=== PATIENT | female | born 1975 | race Caucasian/White ===

== ENCOUNTER 2016-12-19 23:53 | Emergency (ER) | payer OTHER ==
[2016-12-20 01:11] LABS: BUN/CREATININE RATIO 45 (0-10); HEMOGLOBIN 13.7 gm/dl (12.3-15.3); RED BLOOD COUNT 6.08 M/UL (4.00-5.10); WHITE BLOOD COUNT 9.1 K/UL (4.5-11.0)
[2017-03-01] MEDS ORDERED: TRICOR 145 MG145 MG PO (01:29)
[2017-03-01] MEDS ORDERED: SYNTHROID150 MCG PO (01:32)
[2017-03-01] MEDS ORDERED: SINGULAIR10 MG PO (01:32)
[2017-03-01] MEDS ORDERED: IRON325 M1 PO (01:35)
[2017-03-01] MEDS ORDERED: PROVENTIL HFA 61 INH INH ×2 (01:36)
[2017-03-01] MEDS ORDERED: FLOVENT 110.088 GM/I INH (01:38)
[2017-03-01] MEDS ORDERED: MEKINIST0.5 MG PO (01:39)
[2017-03-04] MEDS ORDERED: LEVAQUIN750 MG PO (18:57)
== END 2016-12-20 08:45 ==
LOC: ER1 23:53
PROVIDERS: Family Medicine
DX: R50.9 Fever, unspecified (principal); R22.42 Localized swelling, mass and lump, left lower limb; R11.10 Vomiting, unspecified; Z91.041 Radiographic dye allergy status; Z88.8 Allergy status to other drugs, medicaments and biological substances; Z79.899 Other long term (current) drug therapy
CPT/HCPCS: 36415; 71010; 80053; 81001; 82150; 83690; 85025; 96361; 96374; 96376; 99285; J2270; J2405

== ENCOUNTER 2017-01-02 21:44 | Emergency (ER) | payer OTHER ==
[2017-01-02 23:09] LABS: RED BLOOD COUNT 5.37 M/UL (4.00-5.10); WHITE BLOOD COUNT 9.3 K/UL (4.5-11.0)
[2017-01-02 23:22] LABS: BUN/CREATININE RATIO 60 (0-10)
[2017-03-01] MEDS ORDERED: TRICOR 145 MG145 MG PO (01:29)
[2017-03-01] MEDS ORDERED: SYNTHROID150 MCG PO (01:32)
[2017-03-01] MEDS ORDERED: SINGULAIR10 MG PO (01:32)
[2017-03-01] MEDS ORDERED: IRON325 M1 PO (01:35)
[2017-03-01] MEDS ORDERED: PROVENTIL HFA 61 INH INH ×2 (01:36)
[2017-03-01] MEDS ORDERED: FLOVENT 110.088 GM/I INH (01:38)
[2017-03-01] MEDS ORDERED: MEKINIST0.5 MG PO (01:39)
[2017-03-04] MEDS ORDERED: LEVAQUIN750 MG PO (18:57)
== END 2017-01-03 10:38 | disposition home or self-care (01) ==
LOC: ER1 21:44
PROVIDERS: Emergency Medicine
DX: R10.817 Generalized abdominal tenderness (principal); R11.2 Nausea with vomiting, unspecified; R50.9 Fever, unspecified; E03.9 Hypothyroidism, unspecified; J45.909 Unspecified asthma, uncomplicated; Z88.6 Allergy status to analgesic agent; Z88.8 Allergy status to other drugs, medicaments and biological substances; Z91.041 Radiographic dye allergy status; Z79.899 Other long term (current) drug therapy
CPT/HCPCS: 36415; 80053; 81001; 82150; 83690; 85025; 87086; 96361; 96374; 96375; 96376; 99284; J0692; J2270; J2405; J7040; J7050

== ENCOUNTER 2017-01-29 13:39 | Emergency (ER) | payer OTHER ==
[2017-01-29 14:30] LABS: HEMOGLOBIN 14.5 gm/dl (12.3-15.3); RED BLOOD COUNT 6.38 M/UL (4.00-5.10); WHITE BLOOD COUNT 8.1 K/UL (4.5-11.0)
[2017-01-29 14:46] LABS: BUN/CREATININE RATIO 57 (0-10)
[2017-03-01] MEDS ORDERED: TRICOR 145 MG145 MG PO (01:29)
[2017-03-01] MEDS ORDERED: SINGULAIR10 MG PO (01:32)
[2017-03-01] MEDS ORDERED: SYNTHROID150 MCG PO (01:32)
[2017-03-01] MEDS ORDERED: IRON325 M1 PO (01:35)
[2017-03-01] MEDS ORDERED: PROVENTIL HFA 61 INH INH ×2 (01:36)
[2017-03-01] MEDS ORDERED: FLOVENT 110.088 GM/I INH (01:38)
[2017-03-01] MEDS ORDERED: MEKINIST0.5 MG PO (01:39)
[2017-03-04] MEDS ORDERED: LEVAQUIN750 MG PO (18:57)
== END 2017-01-29 18:00 | disposition home or self-care (01) ==
LOC: ER1 13:39
PROVIDERS: Physician Assistant
DX: N10 Acute pyelonephritis (principal); Z88.5 Allergy status to narcotic agent; Z88.8 Allergy status to other drugs, medicaments and biological substances; Z91.041 Radiographic dye allergy status; Z85.028 Personal history of other malignant neoplasm of stomach
CPT/HCPCS: 36415; 80053; 81001; 83605; 83690; 85025; 87040; 96365; 96375; 96376; 99284; J0696; J2270; J2405; J7050

== ENCOUNTER 2020-10-11 15:46 | Emergency (ER) | payer OTHER ==
[~2020-10-11 15:46] MED LIST: AMOX TR-K CLV1 EAC4 PO; AMPICILLIN 500500 MG PO; BACTRIM DS TAB1 EACH PO; CEFPODOXIME PR100 MG PO; CHEMO IV; CIPRO500 MG PO; FERROUS SULFAT325 M2 PO; FLONASE 0.05% N16 GM; FLORASTOR250 MG PO; FLOVENT 110.088 GM/I INH; FLOVENT 44 MCG7.9 GM INH; FLUZONE QU60 MCG/013 IM; HYDROCODON-ACE1 EAC3 PO; INVANZ 1 GM VIAL1 GM IV; IRON325 M1 PO; LEVAQUIN500 MG PO; LEVAQUIN750 MG PO; LEVOFLOXACIN250 MG PO; MEKINIST0.5 MG PO; NEXIUM20 MG PO; NEXIUM40 MG PO; NORCO 7.5-3251 EACH PO; OMNICEF 300 MG300 MG PO; OXYCODONE HCL10 MG PO; OXYCONTIN10 MG PO; PHENERGAN 25 MG25 M1 PO; PHENERGAN 25 MG25 MG PR; PROTONIX40 MG PO; PROVENTIL HFA 61 INH INH; PROVENTIL HFA6.7 GM INH; ROXICODONE15 MG PO; ROXICODONE5 MG PO; SINGULAIR10 MG PO; SYNTHROID150 MCG PO; THERAGRAN M TAB1 EA PO; TRICOR 145 MG145 MG PO; TRICOR145 MG PO; ULTRAM50 MG PO; ZOFRAN ODT 4 MG4 MG SL; ZOFRAN4 MG PO; ZOSYN 3.373.375 GM/5 IV; ZYVOX600 MG PO
[2020-10-11 16:40] LABS: HEMOGLOBIN 11.3 gm/dl (12.3-15.3); RED BLOOD COUNT 4.98 M/UL (4.00-5.10); WHITE BLOOD COUNT 9.1 K/UL (4.5-11.0)
[2020-10-11 16:47] LABS: BUN/CREATININE RATIO 33 (0-10)
[2020-10-11] MEDS ORDERED: MACROBID 100 M100 MG PO (22:09)
== END 2020-10-12 05:40 | disposition home or self-care (01) ==
LOC: ER1 15:46
PROVIDERS: Physician Assistant
DX: R10.9 Unspecified abdominal pain (principal); Q85.00 Neurofibromatosis, unspecified; R10.812 Left upper quadrant abdominal tenderness; J45.909 Unspecified asthma, uncomplicated; Z90.710 Acquired absence of both cervix and uterus; Z91.013 Allergy to seafood; Z88.2 Allergy status to sulfonamides; Z88.5 Allergy status to narcotic agent; Z85.028 Personal history of other malignant neoplasm of stomach; Z91.041 Radiographic dye allergy status; Z89.512 Acquired absence of left leg below knee
CPT/HCPCS: 80053; 81001; 83605; 83690; 85025; 87040; 87086; 96365; 96368; 96375; 99284; J1642; J1956; J2270; J2405; J2543; J7030

== ENCOUNTER 2020-11-04 06:37 | Observation (INO) | payer OTHER ==
[~2020-11-04] VITALS: Ht 152.4 cm; Wt 63.5 kg
[~2020-11-04 06:37] MED LIST changes: +MACROBID 100 M100 MG PO
[2020-11-04 07:39] LABS: HEMOGLOBIN 11.4 gm/dl (12.3-15.3); RED BLOOD COUNT 5.17 M/UL (4.00-5.10); WHITE BLOOD COUNT 10.3 K/UL (4.5-11.0)
[2020-11-04 07:57] LABS: BUN/CREATININE RATIO 35 (0-10)
[2020-11-04 08:14] LABS: HEMOGLOBIN 11.3 gm/dl (12.3-15.3); RED BLOOD COUNT 5.1 M/UL (4.00-5.10); WHITE BLOOD COUNT 11.3 K/UL (4.5-11.0)
[2020-11-04 08:40] LABS: BUN/CREATININE RATIO 42 (0-10)
[2020-11-04] MEDS ORDERED: TYLENOL EXTRA500 MG PO (11:27)
[2020-11-04] MEDS ORDERED: FLOVENT 220 MC7.9 GM INH (11:27)
[2020-11-04] MEDS ORDERED: RIZATRIPTAN10 MG PO (11:28)
[2020-11-04] MEDS ORDERED: FEOSOL325 MG PO (16:24)
[2020-11-04] MEDS ORDERED: SYNTHROID150 MCG PO (16:25)
[2020-11-04] MEDS ORDERED: MS CONTIN15 MG PO (16:31)
[2020-11-05 03:45] LABS: HEMOGLOBIN 10.3 gm/dl (12.3-15.3)
[2020-11-05 03:56] LABS: RED BLOOD COUNT 4.3 M/UL (4.00-5.10); WHITE BLOOD COUNT 6.9 K/UL (4.5-11.0)
[2020-11-05 04:10] LABS: BUN/CREATININE RATIO 26 (0-10)
--- NOTE | 2020-11-06 11:00 | NUR ---
PATIENT ASKED THAT HEAD START ASSISTANT TEACHER BE CALLED TO PRAY WITH HER. HEAD START ASSISTANT TEACHER WAS CALLED, AND HAS PAYED A VISIT TO PATIENTS ROOM.
--- NOTE | 2020-11-06 12:14 | NUR ---
INSTRUCTED PATIENT NO MED CHANGES., REQUEST NO HOME HEALTH. NURSE MADE AWARE. EDUCATION GIVEN. VERY AWARE OF DIAGNOSIS HAS HAD MANY TIMES.
[2020-11-06] MEDS ORDERED: OMNICEF 300 MG300 MG PO (12:59)
[2020-11-06] MEDS ORDERED: BENADRYL 25MG C25 MG PO (12:59)
== END 2020-11-06 17:16 | disposition home or self-care (01) ==
LOC: ER1 06:37 → MED SURG 4 10:57 → CDU 10:57 → MED SURG 4 19:55
PROVIDERS: Family Medicine; Physician Assistant; ADMIT Family Medicine
DX: N30.00 Acute cystitis without hematuria (principal); B96.1 Klebsiella pneumoniae [K. pneumoniae] as the cause of diseases classified elsewhere; B96.4 Proteus (mirabilis) (morganii) as the cause of diseases classified elsewhere; J45.909 Unspecified asthma, uncomplicated; D50.9 Iron deficiency anemia, unspecified; E03.9 Hypothyroidism, unspecified; Z88.1 Allergy status to other antibiotic agents; Z88.2 Allergy status to sulfonamides; Z88.8 Allergy status to other drugs, medicaments and biological substances; Z91.013 Allergy to seafood; Z91.041 Radiographic dye allergy status; Z79.899 Other long term (current) drug therapy; Z20.822 Contact with and (suspected) exposure to COVID-19; Z89.512 Acquired absence of left leg below knee; Z90.5 Acquired absence of kidney; Z95.828 Presence of other vascular implants and grafts
CPT/HCPCS: 36415; 71045; 80048; 80053; 81001; 82550; 82553; 83605; 83690; 84484; 85025; 87040; 87077; 87086; 87186; 94640; 94664; 94760; 96374; 96375; 96376; 99284; G0378; J1335; J2270; J2405; J7030; U0002

== ENCOUNTER 2020-12-25 00:34 | Inpatient (IN) | payer OTHER ==
[~2020-12-25] VITALS: Ht 152.4 cm; Wt 65.8 kg
[~2020-12-25 00:34] MED LIST changes: +BENADRYL 25MG C25 MG PO; +FEOSOL325 MG PO; +FLOVENT 220 MC7.9 GM INH; +MS CONTIN15 MG PO; +RIZATRIPTAN10 MG PO; +TYLENOL EXTRA500 MG PO
[2020-12-25 01:23] LABS: HEMOGLOBIN 11.9 gm/dl (12.3-15.3); RED BLOOD COUNT 5.18 M/UL (4.00-5.10); WHITE BLOOD COUNT 9.9 K/UL (4.5-11.0)
[2020-12-25 01:39] LABS: BUN/CREATININE RATIO 29 (0-10)
[2020-12-25 12:54] LABS: BUN/CREATININE RATIO 33 (0-10)
--- NOTE | 2020-12-25 20:35 | NUR ---
pt iv removed, v/s stable, education complete. Pt left the floor by wheelchair in stable condition. 1953
[2020-12-26 06:32] LABS: RED BLOOD COUNT 4.3 M/UL (4.00-5.10); WHITE BLOOD COUNT 5.8 K/UL (4.5-11.0)
[2020-12-29 11:55] LABS: HEMOGLOBIN 10.9 gm/dl (12.3-15.3); RED BLOOD COUNT 4.68 M/UL (4.00-5.10); WHITE BLOOD COUNT 8.8 K/UL (4.5-11.0)
[2020-12-29 12:14] LABS: BUN/CREATININE RATIO 39 (0-10)
[2020-12-30 06:11] LABS: HEMOGLOBIN 11.1 gm/dl (12.3-15.3); RED BLOOD COUNT 4.74 M/UL (4.00-5.10); WHITE BLOOD COUNT 9.4 K/UL (4.5-11.0)
[2020-12-30 06:27] LABS: BUN/CREATININE RATIO 31 (0-10)
== END 2021-01-01 16:56 | disposition home or self-care (01) | DRG 699 ==
LOC: ER1 00:34 → CDU 03:53 → MED SURG 4 05:09
PROVIDERS: Family Medicine; Internal Medicine; Physician Assistant Medical; ADMIT Internal Medicine
DX: N99.531 Infection of continent stoma of urinary tract (principal); N10 Acute pyelonephritis; G82.20 Paraplegia, unspecified; Y84.6 Urinary catheterization as the cause of abnormal reaction of the patient, or of later complication, without mention of misadventure at the time of the procedure; Z20.822 Contact with and (suspected) exposure to COVID-19; J45.909 Unspecified asthma, uncomplicated; N99.521 Infection of incontinent external stoma of urinary tract; E03.9 Hypothyroidism, unspecified; M41.9 Scoliosis, unspecified; B96.4 Proteus (mirabilis) (morganii) as the cause of diseases classified elsewhere; B96.89 Other specified bacterial agents as the cause of diseases classified elsewhere; Z87.440 Personal history of urinary (tract) infections; Z89.612 Acquired absence of left leg above knee; Z89.611 Acquired absence of right leg above knee; Q85.00 Neurofibromatosis, unspecified; Q05.9 Spina bifida, unspecified; Z88.1 Allergy status to other antibiotic agents; Z91.041 Radiographic dye allergy status
CPT/HCPCS: 36415; 80048; 80053; 81001; 83605; 83690; 83735; 85025; 85027; 87040; 87077; 87086; 87186; 94640; 94664; 94760; 96374; 96375; 99285; J1650; J2185; J2270; J2405; J7030; U0002

== ENCOUNTER 2021-01-31 06:45 | Inpatient (IN) | payer OTHER ==
[~2021-01-31] VITALS: Ht 114.3 cm; Wt 65.8 kg
[2021-01-31 07:20] LABS: HEMOGLOBIN 11.3 gm/dl (12.3-15.3); RED BLOOD COUNT 4.94 M/UL (4.00-5.10); WHITE BLOOD COUNT 9.7 K/UL (4.5-11.0)
[2021-01-31 07:36] LABS: BUN/CREATININE RATIO 57 (0-10)
[2021-01-31] MEDS ORDERED: CRESTOR10 MG PO (10:26)
[2021-02-01 03:05] LABS: HEMOGLOBIN 9.6 gm/dl (12.3-15.3); WHITE BLOOD COUNT 7.5 K/UL (4.5-11.0)
[2021-02-01 03:06] LABS: RED BLOOD COUNT 4.3 M/UL (4.00-5.10)
[2021-02-01 03:30] LABS: BUN/CREATININE RATIO 51 (0-10)
[2021-02-03 02:45] LABS: HEMOGLOBIN 9.9 gm/dl (12.3-15.3); RED BLOOD COUNT 4.2 M/UL (4.00-5.10); WHITE BLOOD COUNT 6.1 K/UL (4.5-11.0)
[2021-02-03 03:10] LABS: BUN/CREATININE RATIO 33 (0-10)
[2021-02-03] MEDS ORDERED: ZYVOX600 MG PO (14:41)
--- NOTE | 2021-02-03 15:26 | NUR ---
INSTRUCTED PATIENT KELBYKIESHA IS AT [facility] IN [place], PT VERBALIZED UNDERSTANDING. WILL AGRICULTURAL SERVICE TECHNICIAN ON THE WAY HOME. GABBY MERCEDES R.N.
== END 2021-02-03 21:55 | disposition home or self-care (01) | DRG 699 ==
LOC: ER1 06:45 → CDU 08:59 → M/S 08:59
PROVIDERS: Internal Medicine; Physician Assistant; ADMIT Hospitalist
DX: N99.521 Infection of incontinent external stoma of urinary tract (principal); N39.0 Urinary tract infection, site not specified; F11.20 Opioid dependence, uncomplicated; Z16.21 Resistance to vancomycin; N13.8 Other obstructive and reflux uropathy; Y83.8 Other surgical procedures as the cause of abnormal reaction of the patient, or of later complication, without mention of misadventure at the time of the procedure; B95.2 Enterococcus as the cause of diseases classified elsewhere; Z20.822 Contact with and (suspected) exposure to COVID-19; E03.9 Hypothyroidism, unspecified; G89.4 Chronic pain syndrome; Q85.00 Neurofibromatosis, unspecified; Z87.440 Personal history of urinary (tract) infections; Z89.612 Acquired absence of left leg above knee; Z90.710 Acquired absence of both cervix and uterus; Z88.2 Allergy status to sulfonamides; Z88.8 Allergy status to other drugs, medicaments and biological substances; Z88.6 Allergy status to analgesic agent; Z88.1 Allergy status to other antibiotic agents; Z91.013 Allergy to seafood; Z80.1 Family history of malignant neoplasm of trachea, bronchus and lung; Z90.5 Acquired absence of kidney
CPT/HCPCS: 36415; 80048; 80053; 81001; 83605; 83690; 85025; 87040; 87077; 87086; 87186; 94640; 94664; 94760; 96374; 96375; 96376; 99285; J1335; J1650; J2020; J2270; J2405; J7030; U0002

== ENCOUNTER 2021-03-07 01:41 | Inpatient (IN) | payer OTHER ==
[~2021-03-07] VITALS: Ht 152.4 cm; Wt 65.8 kg
[~2021-03-07 01:41] MED LIST changes: +CRESTOR10 MG PO
[2021-03-07 02:32] LABS: HEMOGLOBIN 10.5 gm/dl (12.3-15.3); RED BLOOD COUNT 4.6 M/UL (4.00-5.10); WHITE BLOOD COUNT 9.9 K/UL (4.5-11.0)
[2021-03-07 02:49] LABS: BUN/CREATININE RATIO 26 (0-10)
[2021-03-07] MEDS ORDERED: CETIRIZINE HCL10 MG PO (07:49)
[2021-03-07] MEDS ORDERED: ONDANSETRON HCL8 MG PO (16:26)
[2021-03-08 03:18] LABS: HEMOGLOBIN 9.2 gm/dl (12.3-15.3)
[2021-03-08 03:21] LABS: RED BLOOD COUNT 4.07 M/UL (4.00-5.10); WHITE BLOOD COUNT 6.4 K/UL (4.5-11.0)
[2021-03-08 03:45] LABS: BUN/CREATININE RATIO 18 (0-10)
[2021-03-10 06:17] LABS: HEMOGLOBIN 9.3 gm/dl (12.3-15.3); RED BLOOD COUNT 4.13 M/UL (4.00-5.10); WHITE BLOOD COUNT 6.2 K/UL (4.5-11.0)
[2021-03-10 06:44] LABS: BUN/CREATININE RATIO 24 (0-10)
--- NOTE | 2021-03-13 14:00 | NUR ---
03/13/21 1355 ATTEMPTED TO CALL REPORT TO [facility], INSURANCE PROBLEMS. DUNCAN GILMAN AND SWATI LUU NURSE CAT SCAN TECH NOTIFIED OF DELAYED DISCHARGE
--- NOTE | 2021-03-13 15:11 | NUR ---
03/13/21 2470 REPORT CALLED TO [facility]
== END 2021-03-13 22:30 | disposition home health service (06) | DRG 699 ==
LOC: ER1 01:41 → CDU 05:00 → MED SURG 4 05:00
PROVIDERS: Emergency Medicine; Internal Medicine Infectious Disease; Physician Assistant Medical; ADMIT Internal Medicine
DX: T83.518A Infection and inflammatory reaction due to other urinary catheter, initial encounter (principal); N12 Tubulo-interstitial nephritis, not specified as acute or chronic; F11.20 Opioid dependence, uncomplicated; Z20.822 Contact with and (suspected) exposure to COVID-19; D36.16 Benign neoplasm of peripheral nerves and autonomic nervous system of pelvis; J45.909 Unspecified asthma, uncomplicated; B96.5 Pseudomonas (aeruginosa) (mallei) (pseudomallei) as the cause of diseases classified elsewhere; Z89.612 Acquired absence of left leg above knee; D64.9 Anemia, unspecified; Z90.710 Acquired absence of both cervix and uterus; Z88.2 Allergy status to sulfonamides; Z88.8 Allergy status to other drugs, medicaments and biological substances; Z91.041 Radiographic dye allergy status; Z91.013 Allergy to seafood; Z79.899 Other long term (current) drug therapy; Z80.1 Family history of malignant neoplasm of trachea, bronchus and lung
CPT/HCPCS: 36415; 71045; 80048; 80053; 81001; 83605; 83735; 84100; 85025; 85027; 87040; 87077; 87086; 87186; 94640; 94664; 94760; 96365; 96375; 96376; 99285; J0692; J1642; J1650; J2020; J2185; J2270; J2543; J2550; J7030; U0002

== ENCOUNTER 2021-03-19 00:18 | Emergency (ER) | payer OTHER ==
[~2021-03-19 00:18] MED LIST changes: +CETIRIZINE HCL10 MG PO; +ONDANSETRON HCL8 MG PO
[2021-03-19 01:30] LABS: HEMOGLOBIN 10.4 gm/dl (12.3-15.3); RED BLOOD COUNT 4.49 M/UL (4.00-5.10); WHITE BLOOD COUNT 10.7 K/UL (4.5-11.0)
[2021-03-19 01:40] LABS: BUN/CREATININE RATIO 17 (0-10)
[2021-03-19] MEDS ORDERED: ZOFRAN ODT 4 MG4 MG PO (04:51)
[2021-03-19] MEDS ORDERED: PHENERGAN 25 MG25 M1 PO (04:51)
== END 2021-03-19 05:40 | disposition home or self-care (01) ==
LOC: ER1 00:18 → CDU 03:59 → ER1 03:59
PROVIDERS: Family Medicine
DX: N39.0 Urinary tract infection, site not specified (principal); Z88.2 Allergy status to sulfonamides; Z88.8 Allergy status to other drugs, medicaments and biological substances; Z88.1 Allergy status to other antibiotic agents
CPT/HCPCS: 80053; 81001; 83605; 85025; 87040; 87077; 87086; 87186; 96374; 96375; 99284; J2270; J2405; J2550

== ENCOUNTER 2021-12-01 02:22 | Emergency (ER) | payer OTHER ==
[~2021-12-01 02:22] MED LIST changes: +ZOFRAN ODT 4 MG4 MG PO
[2021-12-01 04:11] LABS: HEMOGLOBIN 11.2 gm/dl (12.3-15.3); RED BLOOD COUNT 4.97 M/UL (4.00-5.10); WHITE BLOOD COUNT 6.8 K/UL (4.5-11.0)
[2021-12-01 04:40] LABS: BUN/CREATININE RATIO 29 (0-10)
[2021-12-01] MEDS ORDERED: CEPHALEXIN500 M1 PO (06:33)
[2021-12-01] MEDS ORDERED: ONDANSETRON ODT4 MG SL (06:33)
[2021-12-01] MEDS ORDERED: PYRIDIUM200 MG PO (06:33)
[2021-12-01] MEDS ORDERED: MACROBID 100 M100 MG PO (06:33)
== END 2021-12-01 09:05 | disposition home or self-care (01) ==
LOC: ER1 02:22
PROVIDERS: Physician Assistant
DX: N39.0 Urinary tract infection, site not specified (principal); E87.6 Hypokalemia; Z85.028 Personal history of other malignant neoplasm of stomach; Z90.5 Acquired absence of kidney; Z88.0 Allergy status to penicillin; Z88.1 Allergy status to other antibiotic agents; Z88.5 Allergy status to narcotic agent; Z88.2 Allergy status to sulfonamides
CPT/HCPCS: 80053; 81001; 83605; 83690; 84703; 85025; 87040; 87077; 87086; 87186; 93005; 96374; 96375; 99284; J0696; J1885; J2270; J2405

== ENCOUNTER 2021-12-16 12:00 | Inpatient (IN) | payer OTHER ==
[~2021-12-16] VITALS: Ht 152.4 cm; Wt 65.8 kg
[~2021-12-16 12:00] MED LIST changes: +CEPHALEXIN500 M1 PO; +ONDANSETRON ODT4 MG SL; +PYRIDIUM200 MG PO; -ROXICODONE15 MG PO
[2021-12-16 12:50] LABS: HEMOGLOBIN 10.9 gm/dl (12.3-15.3); RED BLOOD COUNT 4.88 M/UL (4.00-5.10); WHITE BLOOD COUNT 11.5 K/UL (4.5-11.0)
[2021-12-16 13:09] LABS: BUN/CREATININE RATIO 23 (0-10)
[2021-12-16] MEDS ORDERED: PYRIDIUM200 MG PO (15:39)
[2021-12-16] MEDS ORDERED: SYNTHROID75 MCG PO (15:43)
[2021-12-16] MEDS ORDERED: ROXICODONE15 MG PO (16:30)
[2021-12-17 06:29] LABS: HEMOGLOBIN 9.4 gm/dl (12.3-15.3)
[2021-12-17 06:37] LABS: RED BLOOD COUNT 4.23 M/UL (4.00-5.10); WHITE BLOOD COUNT 8.1 K/UL (4.5-11.0)
[2021-12-17 06:44] LABS: BUN/CREATININE RATIO 23 (0-10)
[2021-12-18 07:39] LABS: HEMOGLOBIN 9.5 gm/dl (12.3-15.3); RED BLOOD COUNT 4.32 M/UL (4.00-5.10); WHITE BLOOD COUNT 8.3 K/UL (4.5-11.0)
[2021-12-18 08:10] LABS: BUN/CREATININE RATIO 21 (0-10)
[2021-12-19 02:25] LABS: HEMOGLOBIN 9.8 gm/dl (12.3-15.3); RED BLOOD COUNT 4.37 M/UL (4.00-5.10); WHITE BLOOD COUNT 8.5 K/UL (4.5-11.0)
[2021-12-19 02:40] LABS: BUN/CREATININE RATIO 19 (0-10)
[2021-12-20 02:29] LABS: HEMOGLOBIN 9.8 gm/dl (12.3-15.3); RED BLOOD COUNT 4.43 M/UL (4.00-5.10); WHITE BLOOD COUNT 9.1 K/UL (4.5-11.0)
[2021-12-20 02:54] LABS: BUN/CREATININE RATIO 29 (0-10)
[2021-12-21 03:30] LABS: HEMOGLOBIN 9.8 gm/dl (12.3-15.3); RED BLOOD COUNT 4.51 M/UL (4.00-5.10)
[2021-12-21 03:37] LABS: BUN/CREATININE RATIO 35 (0-10)
[2021-12-22 03:11] LABS: HEMOGLOBIN 9.9 gm/dl (12.3-15.3); RED BLOOD COUNT 4.43 M/UL (4.00-5.10); WHITE BLOOD COUNT 8.5 K/UL (4.5-11.0)
[2021-12-22 04:16] LABS: BUN/CREATININE RATIO 40 (0-10)
[2021-12-23 03:17] LABS: HEMOGLOBIN 10.2 gm/dl (12.3-15.3); RED BLOOD COUNT 4.63 M/UL (4.00-5.10); WHITE BLOOD COUNT 10.5 K/UL (4.5-11.0)
[2021-12-23 04:34] LABS: BUN/CREATININE RATIO 40 (0-10)
== END 2021-12-23 17:38 | disposition home or self-care (01) | DRG 699 ==
LOC: ER1 12:00 → CDU 14:43 → ER1 14:43 → CDU 14:43 → M/S 14:43 → CDU 15:58 → M/S 12-18 14:10
PROVIDERS: Internal Medicine; Physician Assistant; Physician Assistant Medical; ADMIT Internal Medicine
DX: N99.521 Infection of incontinent external stoma of urinary tract (principal); N10 Acute pyelonephritis; Z20.822 Contact with and (suspected) exposure to COVID-19; Z16.12 Extended spectrum beta lactamase (ESBL) resistance; N11.9 Chronic tubulo-interstitial nephritis, unspecified; B96.5 Pseudomonas (aeruginosa) (mallei) (pseudomallei) as the cause of diseases classified elsewhere; B96.20 Unspecified Escherichia coli [E. coli] as the cause of diseases classified elsewhere; E87.6 Hypokalemia; Y83.8 Other surgical procedures as the cause of abnormal reaction of the patient, or of later complication, without mention of misadventure at the time of the procedure; Z89.612 Acquired absence of left leg above knee; Z90.49 Acquired absence of other specified parts of digestive tract; Z90.710 Acquired absence of both cervix and uterus; Z88.2 Allergy status to sulfonamides; Z88.8 Allergy status to other drugs, medicaments and biological substances; Z88.1 Allergy status to other antibiotic agents; Z91.041 Radiographic dye allergy status; Z91.013 Allergy to seafood; Z80.1 Family history of malignant neoplasm of trachea, bronchus and lung; Z87.440 Personal history of urinary (tract) infections
CPT/HCPCS: 0240U; 36415; 80048; 80053; 81001; 83690; 83735; 84100; 84132; 84439; 84443; 85025; 85027; 86140; 87077; 87086; 87186; 94640; 94664; 94760; 96374; 96375; 96376; 99285; G0378; J1170; J1650; J2020; J2185; J2405; J7030; U0002

== ENCOUNTER 2022-01-27 07:06 | Inpatient (IN) | payer OTHER ==
[~2022-01-27] VITALS: Ht 152.4 cm; Wt 65.8 kg
[~2022-01-27 07:06] MED LIST changes: +ROXICODONE15 MG PO; +SYNTHROID75 MCG PO
[2022-01-27 07:55] LABS: HEMOGLOBIN 10.5 gm/dl (12.3-15.3); RED BLOOD COUNT 4.82 M/UL (4.00-5.10); WHITE BLOOD COUNT 9.6 K/UL (4.5-11.0)
[2022-01-27 08:39] LABS: BUN/CREATININE RATIO 27 (0-10)
[2022-01-27] MEDS ORDERED: MS CONTIN15 MG PO (12:56)
--- NOTE | 2022-01-27 12:59 | NUR ---
PROVIDER MADE AWARE OF PATIWNTS REQUEST FOR PAIN MEDICATION
[2022-01-28 06:44] LABS: HEMOGLOBIN 9.4 gm/dl (12.3-15.3); WHITE BLOOD COUNT 7.7 K/UL (4.5-11.0)
[2022-01-28 06:46] LABS: RED BLOOD COUNT 4.25 M/UL (4.00-5.10)
[2022-01-28 07:02] LABS: BUN/CREATININE RATIO 26 (0-10)
[2022-01-29 06:42] LABS: HEMOGLOBIN 9.5 gm/dl (12.3-15.3); RED BLOOD COUNT 4.25 M/UL (4.00-5.10); WHITE BLOOD COUNT 5.9 K/UL (4.5-11.0)
[2022-01-29 07:12] LABS: BUN/CREATININE RATIO 28 (0-10)
[2022-01-29] MEDS ORDERED: OMNICEF 300 MG300 MG PO (14:08)
[2022-01-30 06:33] LABS: RED BLOOD COUNT 4.16 M/UL (4.00-5.10); WHITE BLOOD COUNT 6.2 K/UL (4.5-11.0)
[2022-01-30 06:52] LABS: BUN/CREATININE RATIO 26 (0-10)
[2022-01-31 06:32] LABS: HEMOGLOBIN 9.3 gm/dl (12.3-15.3); RED BLOOD COUNT 4.15 M/UL (4.00-5.10); WHITE BLOOD COUNT 7.4 K/UL (4.5-11.0)
[2022-01-31 06:49] LABS: BUN/CREATININE RATIO 27 (0-10)
--- NOTE | 2022-02-03 14:36 | NUR ---
patient demonstrated how to put her IV medications together.
== END 2022-02-03 17:30 | disposition home health service (06) | DRG 690 ==
LOC: ER1 07:06 → CDU 09:53 → MED SURG 4 09:53
PROVIDERS: Emergency Medicine; Physician Assistant Medical; ADMIT Internal Medicine
DX: N10 Acute pyelonephritis (principal); E87.1 Hypo-osmolality and hyponatremia; Z20.822 Contact with and (suspected) exposure to COVID-19; F11.20 Opioid dependence, uncomplicated; D53.9 Nutritional anemia, unspecified; J45.909 Unspecified asthma, uncomplicated; B96.4 Proteus (mirabilis) (morganii) as the cause of diseases classified elsewhere; K21.9 Gastro-esophageal reflux disease without esophagitis; E78.5 Hyperlipidemia, unspecified; G89.29 Other chronic pain; R10.2 Pelvic and perineal pain; Z85.028 Personal history of other malignant neoplasm of stomach; Q85.00 Neurofibromatosis, unspecified; Z87.440 Personal history of urinary (tract) infections; Z90.5 Acquired absence of kidney; Z98.890 Other specified postprocedural states; Z90.710 Acquired absence of both cervix and uterus; Z93.3 Colostomy status; Z88.2 Allergy status to sulfonamides; Z88.8 Allergy status to other drugs, medicaments and biological substances; Z88.1 Allergy status to other antibiotic agents; Z91.041 Radiographic dye allergy status; Z88.5 Allergy status to narcotic agent; Z91.013 Allergy to seafood; Z80.1 Family history of malignant neoplasm of trachea, bronchus and lung; Q05.9 Spina bifida, unspecified
CPT/HCPCS: 80048; 80053; 81001; 82550; 82553; 83605; 83690; 83735; 84100; 84484; 84703; 85025; 85027; 86140; 87040; 87077; 87086; 87186; 93005; 96375; 96376; 99285; G0378; J2020; J2185; J2270; J2405

== ENCOUNTER 2022-02-27 03:26 | Inpatient (IN) | payer OTHER ==
[~2022-02-27] VITALS: Ht 152.4 cm; Wt 65.8 kg
[2022-02-27 03:42] LABS: RED BLOOD COUNT 4.5 M/UL (4.00-5.10); WHITE BLOOD COUNT 12.4 K/UL (4.5-11.0)
[2022-02-27 04:00] LABS: BUN/CREATININE RATIO 40 (0-10)
[2022-02-28 03:09] LABS: HEMOGLOBIN 9.2 gm/dl (12.3-15.3); RED BLOOD COUNT 4.19 M/UL (4.00-5.10); WHITE BLOOD COUNT 7.2 K/UL (4.5-11.0)
[2022-02-28 03:40] LABS: BUN/CREATININE RATIO 42 (0-10)
[2022-03-01 03:30] LABS: HEMOGLOBIN 9.4 gm/dl (12.3-15.3); RED BLOOD COUNT 4.35 M/UL (4.00-5.10); WHITE BLOOD COUNT 7.6 K/UL (4.5-11.0)
[2022-03-01 03:57] LABS: BUN/CREATININE RATIO 37 (0-10)
[2022-03-02 08:15] LABS: HEMOGLOBIN 9.5 gm/dl (12.3-15.3); RED BLOOD COUNT 4.34 M/UL (4.00-5.10); WHITE BLOOD COUNT 8.1 K/UL (4.5-11.0)
[2022-03-02 09:07] LABS: BUN/CREATININE RATIO 42 (0-10)
[2022-03-03 02:57] LABS: HEMOGLOBIN 9.6 gm/dl (12.3-15.3); RED BLOOD COUNT 4.36 M/UL (4.00-5.10); WHITE BLOOD COUNT 8.8 K/UL (4.5-11.0)
[2022-03-03 03:17] LABS: BUN/CREATININE RATIO 41 (0-10)
--- NOTE | 2022-03-03 10:25 | NUR ---
EMS CALLED TO TRANSPORT PT
--- NOTE | 2022-03-03 11:33 | NUR ---
PICC LINE DRESSING CHANGED AND RIGHT FOOT DRESSING CHANGED AT THIS TIME. PT. PATTY. WELL
--- NOTE | 2022-03-03 14:25 | NUR ---
EMS CALLED APPROX 10AM TO TRANSPORT PT. [facility] IS BUSY BUT WILL GET TO HER WHEN THEY CAN.
--- NOTE | 2022-03-03 14:26 | NUR ---
[facility] CALLED FOR 2ND TIME FOR UPDATE ON TRANSPORT BACK TO [facility]. STATES WILL GET TO HER WHEN THEY CAN.
== END 2022-03-03 16:42 | disposition home or self-care (01) | DRG 872 ==
LOC: ER1 03:26 → M/S 04:19 → CDU 04:19 → M/S 05:12
PROVIDERS: Emergency Medicine; Internal Medicine; ADMIT Internal Medicine
DX: A41.89 Other specified sepsis (principal); N13.6 Pyonephrosis; G82.20 Paraplegia, unspecified; F11.20 Opioid dependence, uncomplicated; F41.9 Anxiety disorder, unspecified; M79.601 Pain in right arm; G89.29 Other chronic pain; E86.0 Dehydration; J30.9 Allergic rhinitis, unspecified; E78.5 Hyperlipidemia, unspecified; M77.8 Other enthesopathies, not elsewhere classified; B96.89 Other specified bacterial agents as the cause of diseases classified elsewhere; Q05.9 Spina bifida, unspecified; Z89.612 Acquired absence of left leg above knee; Z89.611 Acquired absence of right leg above knee; Z93.3 Colostomy status; Z91.041 Radiographic dye allergy status; Z88.8 Allergy status to other drugs, medicaments and biological substances; Z88.0 Allergy status to penicillin; Z93.6 Other artificial openings of urinary tract status; Q85.00 Neurofibromatosis, unspecified
CPT/HCPCS: 36415; 71045; 73060; 73090; 80048; 80053; 81001; 83605; 83735; 84100; 85025; 85027; 86140; 87040; 87077; 87086; 87186; 94640; 94664; 94760; 96374; 96375; 99285; J0780; J1170; J1335; J1650; J2185; J2405

== ENCOUNTER 2022-04-01 01:12 | Inpatient (IN) | payer OTHER ==
[~2022-04-01] VITALS: Ht 152.4 cm; Wt 65.8 kg
[~2022-04-01 01:12] MED LIST changes: +CUBICIN 500 MG500 MG INJ
[2022-04-01 01:38] LABS: HEMOGLOBIN 10.6 gm/dl (12.3-15.3); RED BLOOD COUNT 4.85 M/UL (4.00-5.10); WHITE BLOOD COUNT 14.6 K/UL (4.5-11.0)
[2022-04-01 01:56] LABS: BUN/CREATININE RATIO 33 (0-10)
[2022-04-01] MEDS ORDERED: CETIRIZINE HCL10 MG PO (09:57)
[2022-04-01] MEDS ORDERED: PROAIR HFA8.5 GM INH (09:58)
[2022-04-02 04:00] LABS: HEMOGLOBIN 8.5 gm/dl (12.3-15.3); RED BLOOD COUNT 3.94 M/UL (4.00-5.10); WHITE BLOOD COUNT 7.6 K/UL (4.5-11.0)
[2022-04-02 04:14] LABS: BUN/CREATININE RATIO 33 (0-10)
[2022-04-04 07:34] LABS: HEMOGLOBIN 8.7 gm/dl (12.3-15.3); RED BLOOD COUNT 4.11 M/UL (4.00-5.10); WHITE BLOOD COUNT 7.8 K/UL (4.5-11.0)
[2022-04-04 07:49] LABS: BUN/CREATININE RATIO 28 (0-10)
[2022-04-05] MEDS ORDERED: CEFUROXIME500 MG PO (11:28)
--- NOTE | 2022-04-05 14:59 | NUR ---
PATIENT SIGNED DISCHARGE PAPERS. VERBALIZES UNDERSTANDING. LEFT CHEST WALL PORT A CATH FLUSHED. AWAITING TRANSPORT.
== END 2022-04-05 22:57 | disposition home or self-care (01) | DRG 872 ==
LOC: ER1 01:12 → CDU 05:57 → MED SURG 4 15:19
PROVIDERS: Emergency Medicine; Internal Medicine Infectious Disease; ADMIT Internal Medicine
DX: A41.9 Sepsis, unspecified organism (principal); N10 Acute pyelonephritis; Z20.822 Contact with and (suspected) exposure to COVID-19; D64.9 Anemia, unspecified; E03.9 Hypothyroidism, unspecified; K21.9 Gastro-esophageal reflux disease without esophagitis; J45.909 Unspecified asthma, uncomplicated; Q85.00 Neurofibromatosis, unspecified; Z89.612 Acquired absence of left leg above knee; Z87.440 Personal history of urinary (tract) infections; Z90.710 Acquired absence of both cervix and uterus; Z93.3 Colostomy status; Z80.1 Family history of malignant neoplasm of trachea, bronchus and lung; Q05.9 Spina bifida, unspecified; Z87.19 Personal history of other diseases of the digestive system
CPT/HCPCS: 36415; 71045; 80053; 81001; 82962; 83605; 83735; 84100; 85025; 86140; 87040; 87077; 87086; 87186; 93005; 94640; 94664; 94760; 96374; 96375; 96376; 99285; A6212; J0696; J0878; J1650; J2185; J2270; J2405; J3370; J7030; J7070

== ENCOUNTER 2022-04-30 13:54 | Inpatient (IN) | payer OTHER ==
[~2022-04-30] VITALS: Ht 152.4 cm; Wt 65.8 kg
[~2022-04-30 13:54] MED LIST changes: +CEFUROXIME500 MG PO; +PROAIR HFA8.5 GM INH
[2022-04-30 16:57] LABS: HEMOGLOBIN 10.8 gm/dl (12.3-15.3); RED BLOOD COUNT 4.86 M/UL (4.00-5.10); WHITE BLOOD COUNT 19.3 K/UL (4.5-11.0)
[2022-04-30 17:33] LABS: BUN/CREATININE RATIO 37 (0-10)
[2022-05-01 06:28] LABS: HEMOGLOBIN 8.7 gm/dl (12.3-15.3); RED BLOOD COUNT 3.92 M/UL (4.00-5.10); WHITE BLOOD COUNT 9.6 K/UL (4.5-11.0)
[2022-05-01 06:49] LABS: BUN/CREATININE RATIO 39 (0-10)
[2022-05-01] MEDS ORDERED: PROMETHAZINE HC25 M1 PO (10:00)
[2022-05-01] MEDS ORDERED: ONDANSETRON HCL8 MG PO (10:00)
[2022-05-02 05:47] LABS: HEMOGLOBIN 8.6 gm/dl (12.3-15.3); RED BLOOD COUNT 3.89 M/UL (4.00-5.10); WHITE BLOOD COUNT 7.3 K/UL (4.5-11.0)
[2022-05-02 06:20] LABS: BUN/CREATININE RATIO 34 (0-10)
[2022-05-03 06:28] LABS: HEMOGLOBIN 8.6 gm/dl (12.3-15.3); RED BLOOD COUNT 3.86 M/UL (4.00-5.10); WHITE BLOOD COUNT 7.6 K/UL (4.5-11.0)
[2022-05-03 06:55] LABS: BUN/CREATININE RATIO 41 (0-10)
[2022-05-04 06:21] LABS: HEMOGLOBIN 8.6 gm/dl (12.3-15.3); RED BLOOD COUNT 3.85 M/UL (4.00-5.10)
[2022-05-04 06:27] LABS: WHITE BLOOD COUNT 9.9 K/UL (4.5-11.0)
[2022-05-04 06:58] LABS: BUN/CREATININE RATIO 29 (0-10)
[2022-05-05] MEDS ORDERED: INVANZ 1 GM VIAL1 GM IV (09:01)
== END 2022-05-05 14:44 | disposition home or self-care (01) | DRG 871 ==
LOC: ER1 13:54 → MED SURG 4 19:16 → CDU 19:16 → MED SURG 4 22:56
PROVIDERS: Physician Assistant Medical; Preventive Medicine Occupational Medicine; ADMIT Internal Medicine
DX: A41.89 Other specified sepsis (principal); U07.1 COVID-19; N10 Acute pyelonephritis; E87.2 Acidosis; G82.20 Paraplegia, unspecified; D64.9 Anemia, unspecified; E78.5 Hyperlipidemia, unspecified; E88.09 Other disorders of plasma-protein metabolism, not elsewhere classified; Q85.00 Neurofibromatosis, unspecified; Z87.440 Personal history of urinary (tract) infections; Z88.3 Allergy status to other anti-infective agents; Z88.2 Allergy status to sulfonamides; Z89.612 Acquired absence of left leg above knee; Z90.5 Acquired absence of kidney; Z93.3 Colostomy status; Z88.8 Allergy status to other drugs, medicaments and biological substances; Z88.1 Allergy status to other antibiotic agents; Z91.041 Radiographic dye allergy status; Z91.013 Allergy to seafood
CPT/HCPCS: 36415; 71045; 80048; 80053; 81001; 83605; 83690; 83735; 85025; 85027; 85652; 86140; 87040; 87077; 87086; 87186; 93005; 94664; 94760; 96374; 96375; 96376; 99285; J0696; J1170; J1335; J1650; J2185; J2405; U0002